=== PATIENT | female | born 1990 | race Caucasian/White ===

== ENCOUNTER → 2021-02-08 | Outpatient (CLI) | payer OTHER ==
--- NOTE | 2021-02-08 11:27 | US ---
EXAMINATION TYPE: US transvaginal DATE OF EXAM: 02/08/2021 COMPARISON: NONE CLINICAL HISTORY: N92.0 Menorrhagia. Heavy cycles with clots for 5 months, A1 TECHNIQUE: TV. Transvaginal sonographic images Date of LMP: 01/23/2021 EXAM MEASUREMENTS: Uterus: 8.3 x 4.8 x 4.0 cm Endometrial Stripe: 1.1 cm Right Ovary: 3.2 x 1.7 x 2.1 cm Left Ovary: 3.7 x 2.3 x 2.2 cm 1. Uterus: Anteverted wnl 2. Endometrium: wnl 3. Right Ovary: wnl 4. Left Ovary: wnl. 5. Bilateral Adnexa: wnl 6. Posterior cul-de-sac: mild free fluid IMPRESSION: Small amount of free fluid noted.
== END | disposition home or self-care (01) ==
LOC: RADUSWWP 08:55
PROVIDERS: ATTEND Family Medicine
DX: N92.0 Excessive and frequent menstruation with regular cycle (principal)
CPT/HCPCS: 76830

== ENCOUNTER 2021-02-16 23:26 | Emergency (ER) | payer OTHER ==
[2021-02-16 23:34] VITALS: TEMP 97.9
--- NOTE | 2021-02-17 00:13 | ED ---
Female Urogenital HPI - General Chief complaint: Vaginal Bleeding Stated complaint: Vaginal Bleeding Time Seen by Provider: 02/16/21 23:42 Source: patient Mode of arrival: ambulatory Limitations: no limitations - History of Present Illness Initial comments: Patient is a 30-year-old female presenting to the emergency Department with complaints of heavy vaginal bleeding over the past 2 days. She has been suffering from heavy irregular periods over the past 5-6 months. She is yet to follow up with [facility]. She did have an outpatient vaginal ultrasound 8 days ago, she does not know the results of this yet. She was concerned after she's been passing some clots. She does not think she is but states there is "always a chance." She is not on control. I'll lower abdominal cramping, no significant abdominal pain, no nausea or vomiting, no fevers or chills. She denies any chest pain or short supply. She has no further complaints. - Related Data Allergies Allergy/AdvReac Type Severity Reaction Status Date / Time No Known Allergies Allergy Verified 02/16/21 23:33 Review of Systems ROS Statement: Those systems with pertinent positive or pertinent negative responses have been documented in the HPI. ROS Other: All systems not noted in ROS Statement are negative. Past Medical History Past Medical History: No Reported History History of Any Multi-Drug Resistant Organisms: None Reported Additional Past Surgical History / Comment(s): - 2013 Past Psychological History: Anxiety Smoking Status: Current every day smoker Past Alcohol Use History: None Reported Past Drug Use History: None Reported General Exam - General Exam Comments Initial Comments: GENERAL: Patient is well-developed and well-nourished. Patient is nontoxic and in no acute distress. HEAD: Atraumatic, normocephalic. EYES: Pupils equal round and reactive to light, extraocular movements intact, sclera anicteric, conjunctiva are normal. Eyelids were unremarkable. ENT: Moist mucous membranes. NECK: Normal range of motion, supple without lymphadenopathy or JVD. LUNGS: Unlabored respirations. Breath sounds clear to auscultation bilaterally and equal. No wheezes rales or rhonchi. HEART: Regular rate and rhythm without murmurs, rubs or gallops. ABDOMEN: Soft, nontender, normoactive bowel sounds. No guarding, no rebound. No masses appreciated. : Deferred MUSCULOSKELETAL: Normal extremities with adequate strength and normal range of motion, no pitting or edema. No clubbing or cyanosis. NEUROLOGICAL: Patient is alert and oriented x 3. SKIN: Warm, Dry, normal turgor, no rashes or lesions noted. Limitations: no limitations Course Vital Signs 02/16/21 23:29 Temperature 97.9 F Pulse Rate 77 Respiratory 20 Rate Blood Pressure 125/83 O2 Sat by Pulse 96 Oximetry Medical Decision Making - Medical Decision Making Patient is a 30-year-old female here with concerns of having vaginal bleeding of the past few days. She's had heavy and irregular periods over the past 5-6 months, has not seen her [facility]. Hemoglobin is stable, urine shows a negative hCG. I discussed the patient and she has a follow-up with her [facility]. She is agreeable this is stable for discharge. - Lab Data Result diagrams: 02/17/21 00:29 Lab Results 02/17/21 02/17/21 02/17/21 Range/Units 00:29 00:29 00:29 WBC 12.1 H (3.8-10.6) k/uL RBC 4.45 (3.80-5.40) m/uL Hgb 14.3 (11.4-16.0) gm/dL Hct 40.9 (34.0-46.0) % MCV 91.9 (80.0-100.0) fL MCH 32.1 (25.0-35.0) pg MCHC 34.9 (31.0-37.0) g/dL RDW 12.6 (11.5-15.5) % Plt Count 358 (150-450) k/uL MPV 8.0 Urine Color Red Urine Appearance Cloudy H (Clear) Urine pH 6.0 (5.0-8.0) Ur Specific [place] 1.024 (1.001-1.035) Urine Protein 1+ H (Negative) Urine Glucose (UA) Negative (Negative) Urine Ketones Trace H (Negative) Urine Blood Large H (Negative) Urine Nitrite Negative (Negative) Urine Bilirubin Negative (Negative) Urine Urobilinogen <2.0 (<2.0) mg/dL Ur Leukocyte Esterase Moderate H (Negative) Urine RBC >182 H (0-5) /hpf Urine WBC 14 H (0-5) /hpf Urine WBC Clumps Occasional H (None) /hpf Ur Squamous Epith Cells 8 H (0-4) /hpf Urine Bacteria Occasional H (None) /hpf Urine Yeast (Budding) Many H (None) /hpf Urine HCG, Qual Not Detected (Not Detectd) Disposition Clinical Impression: Menorrhagia Disposition: HOME SELF-CARE Condition: Stable Instructions (If sedation given, give patient instructions): Menorrhagia (ED) Additional Instructions: Please return to the Emergency Department if symptoms worsen or any other concerns. Please f/u with your OBGYN as discussed. Is patient prescribed a controlled substance at d/c from ED?: No Referrals: Chad Villa DO [Primary Care Provider] - 1-2 days Time of Disposition: 01:12
[2021-02-17 00:23] VITALS: BP 125/83; PULSE 77; RESP 20
[2021-02-17 00:56] LABS: HCT 40.9 % (34.0-46.0); HGB 14.3 gm/dL (11.4-16.0); MCH 32.1 pg (25.0-35.0); MCHC 34.9 g/dL (31.0-37.0); MCV 91.9 fL (80.0-100.0); Platelet Count 358 k/uL (150-450); RBC 4.45 m/uL (3.80-5.40); RDW 12.6 % (11.5-15.5); WBC 12.1 k/uL (3.8-10.6)
[2021-02-17 01:13] LABS: Appearance,Urine Cloudy (Clear); Bacteria,Urine Occasional /hpf; Bilirubin,Urine Negative (Negative); Blood,Urine Large (Negative); Budding Yeast,Urine Many /hpf; Color,Urine Red; Glucose,Urine (UA) Negative (Negative); Ketones,Urine Trace (Negative); Leukocyte Esterase,Urine Moderate (Negative); Nitrite,Urine Negative (Negative); Protein,Urine 1+ (Negative); RBC,Urine >182 /hpf (0-5); Specific Gravity,Urine 1.024 (1.001-1.035); Squamous Epithelial Cell,Urine 8 /hpf (0-4); Urobilinogen,Urine <2.0 mg/dL (<2.0); WBC,Urine 14 /hpf (0-5)
== END 2021-02-17 01:29 | disposition home or self-care (01) ==
LOC: EC 23:26
DX: N92.0 Excessive and frequent menstruation with regular cycle (principal); F17.200 Nicotine dependence, unspecified, uncomplicated
CPT/HCPCS: 36415; 81001; 81025; 85027; 87086; 99284